=== PATIENT | female | born 1995 | race Asian ===

== ENCOUNTER 2021-12-27 18:31 | Emergency (ER) | payer SELFPAY ==
[~2021-12-27] VITALS: Ht 165.1 cm; Wt 61.2 kg
--- NOTE | 2021-12-27 19:25 | NUR ---
JIMBO RA99 From Home "Seizure-witnessed by sister Full tonic/clonic".HX OF SEZIURES ON KEPPRA AND HAS BEEN MED COMPLIENT. PT AWAKE BUT LETHARGIC ON ASSESSMENT. PLACED ON MONITOR AND SEIZURE/SAFETY PRECAUTIONS IN PLACE.
--- NOTE | 2021-12-27 19:27 | NUR ---
20g IV LINE ESTABLISHED AT [facility]. BLOOD DRAWN AND SENT TO LAB
--- NOTE | 2021-12-27 19:30 | NUR ---
POC BG 101
--- NOTE | 2021-12-27 19:46 | NUR ---
ELAINE SALVADOR (FATHER) [phone]
[2021-12-27 20:00] LABS: BASOPHILS % (AUTO) 0.7 % (0.0-2.0); EOSINOPHILS % (AUTO) 0.4 % (0.0-6.0); HEMATOCRIT 40 % (33-45); HEMOGLOBIN 13.2 g/dL (11.5-14.8); LYMPHOCYTES # (AUTO) 0.8 K/uL (0.8-4.8); LYMPHOCYTES % (AUTO) 19.2 % (20.0-44.0); MEAN CORPUSCULAR HGB CONC 33 g/dl (31.0-36.0); MEAN CORPUSCULAR VOLUME 96 fL (82-100); MONOCYTES # (AUTO) 0.2 K/uL (0.1-1.30); MONOCYTES % (AUTO) 3.8 % (2.0-12.0); NEUTROPHILS # (AUTO) 3.1 K/uL (1.8-8.9); NEUTROPHILS % (AUTO) 75.9 % (43.0-81.0); PLATELET COUNT (AUTO) 194 K/uL (150-450); RED BLOOD CELL COUNT(AUTO) 4.11 MIL/uL (4.0-5.2)
[2021-12-27 20:06] LABS: CALCIUM, SERUM 8.4 mg/dL (8.5-10.1); CREATININE 0.8 mg/dL (0.6-1.3); POTASSIUM 3.9 mmol/L (3.5-5.1)
--- NOTE | 2021-12-27 23:17 | NUR ---
IV removed. Catheter intact and site benign. Pressure and 4x4 applied to site. No bleeding noted.
--- NOTE | 2021-12-27 23:19 | NUR ---
DC INSTRUCTIONS GIVEN; AWAITING FOR PT'S MOTHER TO PROFESS[employer] OF [employer]CE[employer]OGR[employer] PT
--- NOTE | 2021-12-27 23:35 | NUR ---
Patient discharged to home in stable condition. Written and verbal after care instructions given. Patient verbalizes understanding of instruction. PT ambulatory with a steady gait
[2021-12-27 23:40] VITALS: BP 103/67
== END 2021-12-27 23:40 | disposition home or self-care (01) ==
LOC: ER 18:38
DX: G40.909 Epilepsy, unspecified, not intractable, without status epilepticus (principal)
CPT/HCPCS: 36415; 80048-TC; 82962-TC; 84702-TC; 84703-TC; 85025-TC

== ENCOUNTER 2024-09-08 22:19 | Inpatient (IN) | payer OTHER ==
[~2024-09-08] VITALS: Ht 162.6 cm; Wt 59.9 kg
[2024-09-08] MEDS ORDERED: LORAZEPAM INJ 2 MG/ML VIAL ONE ×2 (22:21→22:23)
[2024-09-08] MEDS: IV NS 0.9% 1,000 ML BAG IV ONE (22:28)
[2024-09-08] MEDS: LORAZEPAM INJ 2 MG/ML VIAL IVP ONE (22:28)
[2024-09-08] MEDS: LORAZEPAM INJ 2 MG/ML VIAL IM ONE (22:28)
[2024-09-08] MEDS ORDERED: ONDANSETRON HCL/PF 4 MG/2 ML VIAL ONE (22:30)
[2024-09-08] MEDS: ONDANSETRON HCL/PF 4 MG/2 ML VIAL IVP ONE (22:33)
[2024-09-08 22:42] LABS: BASOPHILS % (AUTO) 0.2 % (0.0-2.0); HEMATOCRIT 42 % (33-45); HEMOGLOBIN 13.9 g/dL (11.5-14.8); LYMPHOCYTES # (AUTO) 1.4 K/uL (0.8-4.8); LYMPHOCYTES % (AUTO) 17.3 % (20.0-44.0); MEAN CORPUSCULAR HEMOGLOBIN 32 PG (26.0-33.0); MEAN CORPUSCULAR HGB CONC 33 g/dl (31.0-36.0); MEAN CORPUSCULAR VOLUME 98 fL (82-100); MONOCYTES # (AUTO) 0.4 K/uL (0.1-1.30); MONOCYTES % (AUTO) 5.3 % (2.0-12.0); NEUTROPHILS # (AUTO) 6.4 K/uL (1.8-8.9); NEUTROPHILS % (AUTO) 77.2 % (43.0-81.0); PLATELET COUNT (AUTO) 187 K/uL (150-450); RED BLOOD CELL COUNT(AUTO) 4.29 MIL/uL (4.0-5.2); RED CELL DISTRIBUTION WIDTH 12.8 % (11.5-15.0); WHITE BLOOD COUNT (AUTO) 8.3 K/uL (4.3-11.0)
[2024-09-08] MEDS ORDERED: MIDAZOLAM HCL 5 MG/5ML VIAL ONE (22:44)
[2024-09-08] MEDS: MIDAZOLAM HCL 2 MG/2ML VIAL IV ONE (22:46)
[2024-09-08 22:53] LABS: ALANINE AMINOTRANSFERASE 41 U/L (12-78); ALBUMIN 4.7 g/dL (3.4-5.0); ALKALINE PHOSPHATASE 62 U/L (46-116); ASPARTATE AMINOTRANSFERASE 32 U/L (15-37); BILIRUBIN,DIRECT 0.1 mg/dL (0.0-0.2); BILIRUBIN,TOTAL 0.3 mg/dL (0.2-1.0); CALCIUM, SERUM 8.3 mg/dL (8.5-10.1); CARBON DIOXIDE 24 mmol/L (21-32); CHLORIDE 100 mmol/L (98-107); CREATININE 1.1 mg/dL (0.6-1.3); GLUCOSE 163 mg/dL (74-106); POTASSIUM 3.4 mmol/L (3.5-5.1); SODIUM SERUM 138 mmol/L (136-145); TOTAL PROTEIN, SERUM 8.3 g/dL (6.4-8.2); UREA NITROGEN, BLOOD 19 mg/dL (7-18)
[2024-09-08] MEDS ORDERED: PROPOFOL 100 ML ONE (22:55)
[2024-09-08 22:58] LABS: ALCOHOL, BLOOD < 3 mg/dL (0-10)
[2024-09-08] MEDS: ROCURONIUM BROMIDE 100 MG/10 ML VIAL IV ONE (23:00)
[2024-09-08] MEDS: PROPOFOL 100 ML IV PRN (23:00)
[2024-09-08 23:02] LABS: INR 1.01 (0.91-1.10); PARTIAL THROMBOPLASTIN TIME 25.9 SEC (24.3-34.3); PROTHROMBIN TIME 10.7 SECS (9.2-11.1)
[2024-09-08] MEDS ORDERED: LEVETIRACETAM (500MG) 500 MG/5 ML VIAL IV ONE (23:38)
[2024-09-08] MEDS: LEVETIRACETAM (500MG) 1,000 MG in IV NS 0.9% 90 ML IV SCH (23:46)
[2024-09-08] MEDS: IV NS 0.9% 500 ML BAG IV ONE (23:46)
[2024-09-09] VITALS (32 sets, daily range): BP systolic 98–113; BP diastolic 56–72; TEMP 98.9–100.5; O2SAT 99–100
[2024-09-09 00:11] LABS: AMPHETAMINE, URINE NEGATIVE (NEGATIVE); BARBITURATE, URINE NEGATIVE (NEGATIVE); CANNABINOID, URINE NEGATIVE (NEGATIVE); COCCAINE, URINE NEGATIVE (NEGATIVE); OPIATE, URINE NEGATIVE (NEGATIVE); PHENCYCLIDINE SCREEN,URINE NEGATIVE (NEGATIVE); PREGNANCY TEST URINE QUAL NEGATIVE (NEGATIVE)
[2024-09-09 00:12] LABS: BENZODIAZEPINE, URINE POSITIVE (NEGATIVE)
[2024-09-09] MEDS ORDERED: ONDANSETRON HCL/PF 4 MG/2 ML VIAL IVP PRN (01:00)
[2024-09-09] MEDS ORDERED: ACETAMINOPHEN 325 MG TABLET PO PRN (01:00)
[2024-09-09] MEDS ORDERED: LORAZEPAM INJ 2 MG/ML VIAL IV PRN (01:00)
[2024-09-09 01:05] LABS: APPEARANCE,URINE CLEAR (CLEAR); BILIRUBIN,URINE NEGATIVE (NEGATIVE); BLOOD, URINE NEGATIVE Ery/uL (NEGATIVE); COLOR,URINE YELLOW (YELLOW); KETONES,URINE NEGATIVE (NEGATIVE); LEUKOCYTE ESTERASE ,URINE NEGATIVE (NEGATIVE); NITRITE, URINE NEGATIVE (NEGATIVE); PROTEIN,URINE NEGATIVE (NEGATIVE); UGLUCOSE NEGATIVE (NEGATIVE); UROBILINOGEN,URINE 0.2 EU/dL (0.2)
[2024-09-09] MEDS ORDERED: ENOXAPARIN SODIUM 40 MG/0.4 ML DISP.SYRIN SQ ONE (01:17)
[2024-09-09] MEDS: ENOXAPARIN SODIUM 40 MG/0.4 ML DISP.SYRIN SQ SCH (01:24)
[2024-09-09] MEDS ORDERED: POTASSIUM CL. PREMIX PERIPHER. 50 ML ONE (01:25)
[2024-09-09] MEDS: POTASSIUM CL. PREMIX PERIPHER. 50 ML IV SCH (01:53)
[2024-09-09] MEDS: IV NS 0.9% 1,000 ML BAG IV ONE (02:00)
[2024-09-09 03:56] LABS: ABG BASE EXCESS -4.4 mmol/L (-2.0-3.0); ABG OXYGEN SATURATION 99.4 % (94.0-98.0); ABG PCO2 32.7 mmHg (32.0-45.0); ABG PH 7.395 (7.350-7.450); ABG PO2 515.1 mmHg (83.0-108.0); ABG TOTAL HEMOGLOBIN 12.4 G/dL (12.0-16.0); COHb 0.1 % (0.5-1.5); MetHb 0.5 % (0.0-1.5); O2Hb 98.8 % (94.0-97.0); PEEP,BG 5 cm H2O; SITE, ABG RIGHT RADIAL; VT, ABG 450 mL
[2024-09-09] MEDS: IV NS 0.9% 1,000 ML IV PRN (05:21)
[2024-09-09] MEDS: PROPOFOL 100 ML IV PRN (06:14)
[2024-09-09] MEDS ORDERED: CEFEPIME 2 GM in IV D5W 100 ML IV ONE (06:30)
[2024-09-09] MEDS: ACETAMINOPHEN 650 MG/SUPP.RECT RC PRN (06:40)
[2024-09-09] MEDS: CEFEPIME 2 GM in IV D5W 100 ML IV SCH (08:01)
[2024-09-09] MEDS ORDERED: LEVE100023 PO (08:11)
[2024-09-09] MEDS: PANTOPRAZOLE 40 MG VIAL IV SCH (08:18)
[2024-09-09 08:37] LABS: BASOPHILS % (AUTO) 0.2 % (0.0-2.0); EOSINOPHILS % (AUTO) 0.1 % (0.0-6.0); HEMATOCRIT 38 % (33-45); HEMOGLOBIN 12.7 g/dL (11.5-14.8); LYMPHOCYTES # (AUTO) 1.9 K/uL (0.8-4.8); LYMPHOCYTES % (AUTO) 24.7 % (20.0-44.0); MEAN CORPUSCULAR HEMOGLOBIN 32 PG (26.0-33.0); MEAN CORPUSCULAR HGB CONC 34 g/dl (31.0-36.0); MEAN CORPUSCULAR VOLUME 95 fL (82-100); MONOCYTES # (AUTO) 1.1 K/uL (0.1-1.30); MONOCYTES % (AUTO) 14.3 % (2.0-12.0); NEUTROPHILS # (AUTO) 4.6 K/uL (1.8-8.9); NEUTROPHILS % (AUTO) 60.7 % (43.0-81.0); PLATELET COUNT (AUTO) 147 K/uL (150-450); RED BLOOD CELL COUNT(AUTO) 3.96 MIL/uL (4.0-5.2); RED CELL DISTRIBUTION WIDTH 12.6 % (11.5-15.0); WHITE BLOOD COUNT (AUTO) 7.5 K/uL (4.3-11.0)
[2024-09-09 08:59] LABS: CALCIUM, SERUM 7.8 mg/dL (8.5-10.1); CREATININE 0.8 mg/dL (0.6-1.3); MAGNESIUM 2.2 mg/dL (1.8-2.4); PHOSPHORUS 2.6 mg/dL (2.5-4.9); POTASSIUM 3.8 mmol/L (3.5-5.1)
[2024-09-09] MEDS ORDERED: LEVETIRACETAM (500MG) 1,000 MG in IV NS 0.9% 90 ML IV SCH (09:00)
[2024-09-09] MEDS: LEVETIRACETAM (500MG) 1,500 MG in IV NS 0.9% 85 ML IV SCH (09:11)
[2024-09-10] VITALS (17 sets, daily range): BP systolic 96–110; BP diastolic 57–71; TEMP 97.5–98.9; O2SAT 100
[2024-09-10 04:44] LABS: BASOPHILS % (AUTO) 0.3 % (0.0-2.0); EOSINOPHILS % (AUTO) 0.4 % (0.0-6.0); HEMATOCRIT 33 % (33-45); HEMOGLOBIN 11.3 g/dL (11.5-14.8); LYMPHOCYTES # (AUTO) 1.9 K/uL (0.8-4.8); LYMPHOCYTES % (AUTO) 26.2 % (20.0-44.0); MEAN CORPUSCULAR HEMOGLOBIN 33 PG (26.0-33.0); MEAN CORPUSCULAR HGB CONC 35 g/dl (31.0-36.0); MEAN CORPUSCULAR VOLUME 95 fL (82-100); MONOCYTES # (AUTO) 0.8 K/uL (0.1-1.30); MONOCYTES % (AUTO) 10.8 % (2.0-12.0); NEUTROPHILS # (AUTO) 4.4 K/uL (1.8-8.9); NEUTROPHILS % (AUTO) 62.3 % (43.0-81.0); PLATELET COUNT (AUTO) 121 K/uL (150-450); RED BLOOD CELL COUNT(AUTO) 3.44 MIL/uL (4.0-5.2); RED CELL DISTRIBUTION WIDTH 12.7 % (11.5-15.0); WHITE BLOOD COUNT (AUTO) 7.1 K/uL (4.3-11.0)
[2024-09-10 05:12] LABS: ALBUMIN 2.9 g/dL (3.4-5.0); BILIRUBIN,TOTAL 0.7 mg/dL (0.2-1.0); CALCIUM, SERUM 7.7 mg/dL (8.5-10.1); CREATININE 0.7 mg/dL (0.6-1.3); MAGNESIUM 2.1 mg/dL (1.8-2.4); PHOSPHORUS 2.3 mg/dL (2.5-4.9); POTASSIUM 3.3 mmol/L (3.5-5.1); TOTAL PROTEIN, SERUM 5.6 g/dL (6.4-8.2)
[2024-09-10] MEDS ORDERED: PRECEDEX 400 MCG/100 ML BOTTLE 100 ML IV PRN (09:00)
[2024-09-10] MEDS: POTASSIUM CL. PREMIX PERIPHER. 50 ML IV SCH (11:17)
[2024-09-10] MEDS ORDERED: LEVE1000 PO (13:31)
[2024-09-10] MEDS: Sodium Phosphate 15 MMOL in IV NS 0.9% 245 ML IV SCH (15:52)
[2024-09-10] MEDS ORDERED: ROCURONIUM BROMIDE 50 MG/5 ML IV ONE (16:27)
== END 2024-09-10 16:28 | disposition short-term general hospital (02) | DRG 101 ==
LOC: EDUNIT# 22:19 → ER 22:32 → ICU 09-09 03:09
PROC: 5A1945Z Respiratory Ventilation, 24-96 Consecutive Hours (ICD-10-PCS; principal; 2024-09-09)
PROC: 0BH17EZ Insertion of Endotracheal Airway into Trachea, Via Natural or Artificial Opening (ICD-10-PCS; 2024-09-09)
DX: G40.901 Epilepsy, unspecified, not intractable, with status epilepticus (principal); Z79.899 Other long term (current) drug therapy; E87.6 Hypokalemia
CPT/HCPCS: 31720; 36415; 36600; 70450-TC; 71045-TC; 80048-TC; 80053-TC; 80076-TC; 80177; 82803-TC; 83735-TC; 84100-TC; 84478-TC; 84703-TC; 85025-TC; 85730-TC; 87081-TC; 94002-TC; 94003-TC; 94799-TC; 99082-TC; A4223; A9563; G0378; G0480; J0692; J1650; J1953; J2060; J2250; J2405; J2470; J3480; J3490; J7030; J7050; J7060